=== PATIENT | male | born 1950 | race Caucasian/White ===

== ENCOUNTER → 2016-03-09 | Outpatient (CLI) | payer MEDICARE, BC | END | disposition home or self-care (01) | LOC: PCVCCLINIC 11:32 | PROVIDERS: ATTEND Internal Medicine | DX: I25.10 Atherosclerotic heart disease of native coronary artery without angina pectoris (principal); I25.5 Ischemic cardiomyopathy; E78.5 Hyperlipidemia, unspecified; N28.9 Disorder of kidney and ureter, unspecified | CPT/HCPCS: 80061; 93005; G0463 ==

== ENCOUNTER → 2016-09-28 | Outpatient (CLI) | payer MEDICARE, BC ==
--- NOTE | 2016-09-28 11:17 | PCVCIMAG ---
APPROVED REPORT Exam: Stress Echocardiogram Indication: CAD s/p PCI, Hyperlipidemia Stress Nurse: Diane Sullivan RN Status: routine Ht: 5 ft 7 in HR: 67 bpm BP: 130/80 mmHg Rhythm: NSR Procedure The patient underwent an Exercise Stress Test using the Lane Protocol. Blood pressure, heart rate, and EKG were monitored. An Echocardiogram was performed by body and frame technician in four stages in quad fashion. At peak stress, four selected images were obtained and placed side by side with resting images for comparison. Stress Test Details Stress Test: Exercise stress testing was performed using a Lane protocol. HR Resting HR: 67 bpmMax Heart Rate (APMHR): 152 bpm Max HR Achieved: 166 bpmTarget HR (85% APMHR): 129 bpm % of APMHR: 109 Recovery HR: 102 bpm HR response to stress: Normal HR response to stress BP Resting BP: 130/80 mmHg Max BP: 184/78 mmHg Recovery BP: 158/74 mmHg ECG Resting ECG: Sinus Rhythm Stress ECG: Sinus Rhythm Maximum ST Deviation: 1 mm Arrhythmia: Frequent PVCs at peak exercise Recovery ECG: Sinus Rhythm Recovery ST Deviation: 0 mm Recovery Arrhythmia: None Clinical Reason for Termination: Maximal effort Exercise duration: 12 min sec Highest Stage Achieved: Stage 4: 4.2 mph at 16% grade. Exercise capacity: 13.7 METs Overall Exercise Capacity for Age: Excellent Angina Score: None Stress ECG Conclusion Clinical: Non-ischemic ECG: Ischemic. Upsloping ST depression resolving immediately into recovery phase, similar to study dated November, Mendez Treadmill Score is 7.0 which is Low risk. Pre-Stress Echo The resting Echocardiogram showed normal left ventricular contractility with an estimated Ejection Fraction of about >55%. Normal wall motion in all segments on baseline images. Post-Stress Echo The stress Echocardiogram showed normal left ventricular contractility with an estimated Ejection Fraction of about 65%. Normal augmentation of wall motion in all segments on post stress images. Conclusion Clinical Response: Non-ischemic Stress ECG Response: Equivocal Stress Echo Images: Non-ischemic Normal stress echocardiogram with maximal exercise stress. False positive ECG response seen on prior stress studies Other Information Study Quality: Adequate <Conclusion> Normal stress echocardiogram with maximal exercise stress. False positive ECG response seen on prior stress studies
== END | disposition home or self-care (01) ==
LOC: PCVCIMAG 10:13
PROVIDERS: ATTEND Internal Medicine
DX: I49.3 Ventricular premature depolarization (principal); I25.10 Atherosclerotic heart disease of native coronary artery without angina pectoris; E78.5 Hyperlipidemia, unspecified; N19 Unspecified kidney failure; Z95.5 Presence of coronary angioplasty implant and graft
CPT/HCPCS: 93325; 93351

== ENCOUNTER → 2018-12-12 | Outpatient (CLI) | payer MEDICARE, BC | END | disposition home or self-care (01) | LOC: PCVCCLINIC 15:40 | PROVIDERS: ATTEND Internal Medicine | DX: I25.10 Atherosclerotic heart disease of native coronary artery without angina pectoris (principal); E78.5 Hyperlipidemia, unspecified; R94.31 Abnormal electrocardiogram [ECG] [EKG]; I25.5 Ischemic cardiomyopathy; N28.9 Disorder of kidney and ureter, unspecified; Z88.2 Allergy status to sulfonamides; Z72.89 Other problems related to lifestyle; Z79.899 Other long term (current) drug therapy | CPT/HCPCS: 36415; 80061; 93005; G0463 ==